=== PATIENT | female | born 1975 | race Caucasian/White ===

== ENCOUNTER 2023-09-26 10:17 | Emergency (ER) | payer SELFPAY ==
[~2023-09-26] VITALS: Ht 170.2 cm; Wt 100.9 kg
[2023-09-26 10:29] VITALS: BP 100/61; TEMP 98.1
[2023-09-26] MEDS ORDERED: AlOH3/diphen/Lidoc/MgOH2/Simet Oral Susp 10 ML UD Syringe PO ONE (10:45)
[2023-09-26] MEDS ORDERED: predniSONE 20 MG TAB PO ONE (10:45)
[2023-09-26] MEDS ORDERED: CEPHALEXIN500 M1 PO (10:58)
[2023-09-26 11:07] VITALS: PULSE 84
== END 2023-09-26 11:09 | disposition home or self-care (01) ==
LOC: COL.ER 10:17
DX: J02.0 Streptococcal pharyngitis (principal); F17.290 Nicotine dependence, other tobacco product, uncomplicated; Z88.2 Allergy status to sulfonamides
CPT/HCPCS: J7512